=== PATIENT | male | born 1950 | race Caucasian/White ===

== ENCOUNTER → 2017-08-14 | Day surgery (SDC) | payer MEDICARE ==
[~2017-08-14] MED LIST: BUPIVACAINE HCL PF 0.5% 30 ML VIAL ONE; KETOROLAC TROMETHAMINE 60 MG/2 ML (IM) VIAL IM ONE; LACTATED RINGER'S 1000 ML INJ 1,000 ML ONE; MIDAZOLAM HCL 2 MG/2 ML VIAL ONE; ONDANSETRON HCL 4 MG/2 ML VIAL IV PUSH ONE; PROPOFOL 200 MG/20 ML AMP IV ONE; ceFAZolin INJ 1,000 MG VIAL ONE
--- NOTE | 2017-08-16 16:56 | TN ---
cc: Susannah Moreau DPM DATE OF SURGERY: 08/14/2017 DATE OF : 1950 DATE OF SURGERY 08/14/2017. INDICATIONS: The patient presented to my clinic with continued pain to his left ankle. It was noted that he had three screws in the lateral malleolus and one screw in the medial malleolus for an old ankle fracture fixed many years ago. He continued to have pain and decreased range of motion with swelling and discomfort. He has tried immobilization and bracing. I discussed with the patient that he may wish to consider removal of hardware prior to moving forward with further imaging studies and workup for his pain in order to try to eliminate causes of pain which could be may post-arthritic changes to the joint after the trauma versus other issues going on with the possible painful hardware. He agreed to move forward with the procedure of removal of painful hardware, left ankle. OPERATIVE PROCEDURE: He was seen in Preop Holding by myself, nursing staff and anesthesia where the correct patient, side, and site were confirmed to be correct and the left ankle. He was then taken to the surgical suite, placed in supine position. The left foot and ankle were prepped and draped in normal sterile fashion followed by attention directed to the lateral aspect of the ankle where three screws were noted to be in the distal aspect of the distal fibula and they were localized and removed using C-arm guidance in its entirety. Following this, attention was directed to the medial aspect of the ankle to the medial malleolus, where one single screw was identified and removed. This was confirmed with C-arm and the areas were copiously irrigated, followed by primary closure with 2-0 Vicryl suture. Following this, a dressing consisting of Xeroform, 4 x 4's, cast padding and Aman were applied to the left foot and ankle as well as his short Cam boot. He tolerated the procedure and anesthesia well, without complications, and will be weightbearing as tolerated to the left foot and ankle in a Cam boot and follow up in clinic in 1 week for a dressing change. SHORT OPERATIVE NOTE SURGEON: Susannah Moreau DPM EDGE RUNNER: Staff. PREOPERATIVE DIAGNOSIS: Painful hardware, left ankle. POSTOPERATIVE DIAGNOSIS: Painful hardware, left ankle. PROCEDURE: Removal of painful hardware, left ankle. PROCEDURE PERFORMED: Removal of painful hardware, left ankle. PROPHYLAXIS: Two grams Ancef IV preoperatively. PATHOLOGY: None. ESTIMATED BLOOD LOSS: Minimal. HEMOSTASIS: No tourniquet utilized. DISPOSITION: Weightbearing as tolerated left foot and ankle in Cam boot. Follow up in clinic in 1 week for a dressing change. SURI Dumont , 04:38 PM , 04:56 PM
== END | disposition home or self-care (01) ==
LOC: ESDC 06:08
PROVIDERS: ATTEND Podiatrist Foot & Ankle Surgery
DX: T84.84XA Pain due to internal orthopedic prosthetic devices, implants and grafts, initial encounter (principal)
CPT/HCPCS: 01480; 20680; 73600; 76000; J0690; J1885; J2250; J2405; J3010; J7120